=== PATIENT | male | born 1995 | race Caucasian/White ===

== ENCOUNTER 2018-03-20 03:30 | Emergency (ER) | payer SELFPAY ==
[2018-03-20 04:14] LABS: CHLORIDE,CL 101 mEq/L (98-106); SODIUM,NA 140 mEq/L (136-145)
--- NOTE | 2018-03-20 04:21 | EDM.PDOC ---
ED HPI GENERAL MEDICAL PROBLEM - General Chief Complaint: General Stated Complaint: ANXIETY Time Seen by Provider: 03/20/18 04:00 Source of Information: Reports: Patient History Limitations: Reports: No Limitations - History of Present Illness INITIAL COMMENTS - FREE TEXT/NARRATIVE: Patient presents to ER with complaints of heart racing, shortness of breath and sweating. States while lying in bed at home, wasn't feeling quite right. Tried to take slow deep breaths to slow his heart rate but was unsuccessful. Has a history of high blood pressure and was on Metoprolol but stopped taking it as he didn't like the way it made him feel. He states he has had a holter monitor on before, had EKGS and labs and they have never found why he has palpitations. Did not have any triggering events tonight. Does admit to a pot of coffee every day but that is a norm for him. He denies drinking any energy drinks. Does smoke. No drug use. He has been told in the past, he could have issues with anxiety. Does have a family history of that. Onset: Today Duration: Minutes: Location: Reports: Chest Quality: Reports: Dull, Throbbing Severity: Moderate Improves with: Reports: Rest Associated Symptoms: Reports: Chest Pain, Diaphoresis, Nausea/Vomiting, Shortness of Breath. Denies: Cough, Fever/Chills, Headaches, Loss of Appetite, Rash, Seizure, Syncope - Related Data Allergies Allergy/AdvReac Type Severity Reaction Status Date / Time No Known Allergies Allergy Verified 03/20/18 03:31 Home Meds: Home Meds . [Unable to Verify Home Med List] 03/20/18 [History] Past Medical History Cardiovascular History: Reports: Hypertension Psychiatric History: Reports: Anxiety, Panic Attack - Past Surgical History Cardiovascular Surgical History: Reports: None Social & Family History - Tobacco Use Smoking Status *Q: Current Every Day Smoker Years of Tobacco use: 9 Packs/Tins Daily: 1 - Caffeine Use Caffeine Use: Reports: Coffee - Recreational Drug Use Recreational Drug Use: No Other Recreational Drug Type: DENIES ANY DRUG USE ED ROS GENERAL - Review of Systems Review Of Systems: See Below Constitutional: Denies: Fever, Chills, Malaise, Weakness, Decreased Appetite HEENT: Reports: No Symptoms Respiratory: Reports: Shortness of Breath. Denies: Cough Cardiovascular: Reports: Chest Pain. Denies: Edema, Lightheadedness Endocrine: Denies: Fatigue GI/Abdominal: Reports: Nausea. Denies: Abdominal Pain, Vomiting : Reports: No Symptoms Musculoskeletal: Reports: No Symptoms Skin: Reports: No Symptoms Neurological: Reports: No Symptoms ED EXAM, GENERAL - Physical Exam Exam: See Below Exam Limited By: No Limitations General Appearance: Alert, WD/WN, No Apparent Distress Ears: Normal External Exam, Normal TMs Nose: Normal Inspection, Normal Mucosa, No Blood Throat/Mouth: Normal Inspection, Normal Oropharynx Head: Normocephalic Neck: Normal Inspection, Supple, Non-Tender Respiratory/Chest: No Respiratory Distress, Lungs Clear, Normal Breath Sounds Cardiovascular: Regular Rate, Rhythm GI/Abdominal: Normal Bowel Sounds, Soft, Non-Tender Neurological: Alert, Oriented Psychiatric: Anxious Skin Exam: Warm Course - Vital Signs Last Recorded V/S: Last Vital Signs Temp 97.2 F 03/20/18 04:00 Pulse 98 03/20/18 04:00 Resp 16 03/20/18 04:00 BP 129/88 03/20/18 04:00 Pulse Ox 98 03/20/18 04:00 - Orders/Labs/Meds Orders: Active Orders 24 hr Category Date Time Status EKG Documentation Completion [RC] STAT Care 03/20/18 03:42 Active DRUG SCREEN URINE BIORAD [URCHEM] Stat Lab 03/20/18 03:45 Ordered Labs: Laboratory Tests 03/20/18 03/20/18 03/20/18 Range/Units 03:45 03:57 03:57 WBC 7.1 (5.0-10.0) 10^3/uL RBC 5.23 (4.50-6.00) 10^6/uL Hgb 15.9 (14.0-18.0) g/dL Hct 43.6 (40.0-54.0) % MCV 83.4 (82.0-94.0) fL MCH 30.4 (27.0-32.0) pg MCHC 36.5 (33.0-38.0) g/dL RDW Coeff of Jasmina 11.6 (11.0-15.0) % Plt Count 220 (150-400) 10^3/uL Neut % (Auto) 59.8 (35-85) % Lymph % (Auto) 31.5 (10-55) % Calhoun % (Auto) 6.1 (0-16) % Eos % (Auto) 2.0 (0-5) % Baso % (Auto) 0.6 (0-3) % Neut # (Auto) 4.24 (1.80-7.00) 10^3/uL Lymph # (Auto) 2.23 (1.00-4.80) 10^3/uL Calhoun # (Auto) 0.43 (0.00-0.80) 10^3/uL Eos # (Auto) 0.14 (0.00-0.45) 10^3/uL Baso # (Auto) 0.04 10^3/uL PT 10.7 (9.7-12.3) SEC INR 1.03 (0.92-1.18) APTT 25.8 (23.2-32.3) SEC Sodium (136-145) mEq/L Potassium (3.5-5.0) mEq/L Chloride (98-106) mEq/L Carbon Dioxide (21-32) mmol/L BUN (7-18) mg/dL Creatinine (0.7-1.3) mg/dL Est Cr Clr Drug Dosing mL/min Estimated GFR (MDRD) (>=60) mL/min Glucose (75-99) mg/dL Calcium (8.4-10.1) mg/dL Lactate Dehydrogenase (100-190) U/L Creatine Kinase (35-232) U/L Troponin I (0.00-0.06) ng/mL Urine Opiates Screen Negative (NEGATIVE) Ur Oxycodone Screen Negative (NEGATIVE) Urine Methadone Screen Negative (NEGATIVE) Ur Barbiturates Screen Negative (NEGATIVE) U Tricyclic Antidepress Negative (NEGATIVE) Ur Phencyclidine Scrn Negative (NEGATIVE) Ur Amphetamine Screen Negative (NEGATIVE) U Methamphetamines Scrn Negative (NEGATIVE) Urine MDMA Screen Negative (NEGATIVE) U Benzodiazepines Scrn Negative (NEGATIVE) Urine Cocaine Screen Negative (NEGATIVE) U Marijuana (THC) Screen Negative (NEGATIVE) 03/20/18 Range/Units 03:57 WBC (5.0-10.0) 10^3/uL RBC (4.50-6.00) 10^6/uL Hgb (14.0-18.0) g/dL Hct (40.0-54.0) % MCV (82.0-94.0) fL MCH (27.0-32.0) pg MCHC (33.0-38.0) g/dL RDW Coeff of Jasmina (11.0-15.0) % Plt Count (150-400) 10^3/uL Neut % (Auto) (35-85) % Lymph % (Auto) (10-55) % Calhoun % (Auto) (0-16) % Eos % (Auto) (0-5) % Baso % (Auto) (0-3) % Neut # (Auto) (1.80-7.00) 10^3/uL Lymph # (Auto) (1.00-4.80) 10^3/uL Calhoun # (Auto) (0.00-0.80) 10^3/uL Eos # (Auto) (0.00-0.45) 10^3/uL Baso # (Auto) 10^3/uL PT (9.7-12.3) SEC INR (0.92-1.18) APTT (23.2-32.3) SEC Sodium 140 (136-145) mEq/L Potassium 3.4 L (3.5-5.0) mEq/L Chloride 101 (98-106) mEq/L Carbon Dioxide 30 (21-32) mmol/L BUN 9 (7-18) mg/dL Creatinine 1.0 (0.7-1.3) mg/dL Est Cr Clr Drug Dosing 100.36 mL/min Estimated GFR (MDRD) > 60 (>=60) mL/min Glucose 134 H D (75-99) mg/dL Calcium 9.2 (8.4-10.1) mg/dL Lactate Dehydrogenase 141 (100-190) U/L Creatine Kinase 120 (35-232) U/L Troponin I < 0.017 (0.00-0.06) ng/mL Urine Opiates Screen (NEGATIVE) Ur Oxycodone Screen (NEGATIVE) Urine Methadone Screen (NEGATIVE) Ur Barbiturates Screen (NEGATIVE) U Tricyclic Antidepress (NEGATIVE) Ur Phencyclidine Scrn (NEGATIVE) Ur Amphetamine Screen (NEGATIVE) U Methamphetamines Scrn (NEGATIVE) Urine MDMA Screen (NEGATIVE) U Benzodiazepines Scrn (NEGATIVE) Urine Cocaine Screen (NEGATIVE) U Marijuana (THC) Screen (NEGATIVE) - Re-Assessments/Exams Free Text/Narrative Re-Assessment/Exam: 03/20/18 04:23 labs are all normal. blood pressure is now normotensive. Departure - Departure Time of Disposition: 04:23 Disposition: Home, Self-Care 01 Condition: Good Clinical Impression: Palpitations, Anxiety - Discharge Information Instructions: Panic Attack, [id number] Referrals: Provider,Unknown [Primary Care Provider] - Additional Instructions: 1. Rest 2. Decrease caffeine intake 3. Consider smoking cessation 4. Return to clinic for blood pressure recheck and further follow up of palpitations 5. Call with any questions. - My Orders Last 24 Hours: My Active Orders 03/20/18 03:42 EKG Documentation Completion [RC] STAT 03/20/18 03:45 DRUG SCREEN URINE BIORAD [URCHEM] Stat - Assessment/Plan Last 24 Hours: My Active Orders 03/20/18 03:42 EKG Documentation Completion [RC] STAT 03/20/18 03:45 DRUG SCREEN URINE BIORAD [URCHEM] Stat
== END 2018-03-20 04:35 | disposition home or self-care (01) ==
LOC: CC.ED 03:30
DX: F41.9 Anxiety disorder, unspecified (principal); I10 Essential (primary) hypertension; F17.210 Nicotine dependence, cigarettes, uncomplicated
CPT/HCPCS: 36415; 80048; 80305-QW; 82550; 83615; 84484; 85025; 85610; 85730; 93005; 99285